=== PATIENT | male | born 1960 | race African-American/Black ===

== ENCOUNTER 2018-03-03 12:24 | Inpatient (IN) | payer OTHER ==
[2018-03-03 13:29] VITALS: BMI 28.8
--- NOTE | 2018-03-03 15:02 | HP ---
CIWA Score - CIWA Score Nausea/Vomitin Muscle Tremors: 2 Anxiety: 2 Agitation: 0-Normal Activity Paroxysmal Sweats: 2 Orientation: 2-Disoriented Date<2 days Tacttile Disturbances: 0-None Auditory Disturbances: 0-None Visual Disturbances: 0-None Headache: 2-Mild CIWA-Ar Total Score: 12 Admission [facility] Chief Complaint: ETOH WITHDRAWAL SYNDROME. Allergies/Adverse Reactions: Allergies Allergy/AdvReac Type Severity Reaction Status Date / Time No Known Allergies Allergy Verified 03/03/18 14:30 History of Present Illness: PATIENT PRESENTS WITH ETOH WITHDRAWAL SYMPTOMS. PATIENT STARTED DRINKING AT AGE. DRINKS 12 BEERS AND ONE PINT OF LIQUOR DAILY. LAST DRINK WAS THIS MORNING. DENIES HX OF SEIZURES. +BLACKOUTS. PATIENT ALSO SMOKE CRACK/COCAINE SINCE AGE 30 AND USES UP TO 80 DOLLARS DAILY. LAST TIME HE SMOKED WAS YESTERDAY. PMH INCLUDES HTN, TOBACCO USE, INSOMNIA AND ANXIETY. DENIES SI/HI AND SUICIDE ATTEMPTS. THIS IS PATIENT'S FIRST TIME DETOX ADMISSION HERE AT [facility]. PAT[facility] DA[facility] A[facility] FOR WITHDRAWAL SYMPTOMS AND TREATED WITH BZO. Exam Limitations: No Limitations - Ebola screening Have you traveled outside of the country in the last 21 days: No Have you had contact with anyone from an Ebola affected area: No Have you been sick,other than usual withdrawal symptoms: No Do you have a fever: No - Review of Systems Constitutional: Chills, Night Sweats, Changes in sleep, Weight Stable EENT: reports: No Symptoms Reported Respiratory: reports: No Symptoms reported Cardiac: reports: No Symptoms Reported GI: reports: Diarrhea, Nausea, Poor Fluid Intake, Abdominal cramping : reports: No Symptoms Reported Musculoskeletal: reports: Back Pain Integumentary: reports: Sweating Neuro: reports: Headache, Tremors Endocrine: reports: No Symptoms Reported Hematology: reports: No Symptoms Reported Psychiatric: reports: Anxious, Depressed Patient History - Patient Medical History Hx Anemia: No Hx Asthma: No Hx Chronic Obstructive Pulmonary Disease (COPD): No Hx Cancer: No Hx Cardiac Disorders: No Hx Congestive Heart Failure: No Hx Hypertension: Yes Hx Hypercholesterolemia: No Hx Pacemaker: No HX Cerebrovascular Accident: No Hx Seizures: No Hx Dementia: No Hx Diabetes: No Hx Gastrointestinal Disorders: No Hx Liver Disease: No Hx Genitourinary Disorders: No Hx Sexually Transmitted Disorders: No Hx Renal Disease (ESRD): No Hx Thyroid Disease: No Hx Human Immunodeficiency Virus (HIV): No Hx Hepatitis C: No Hx Depression: Yes Hx Suicide Attempt: No Hx Bipolar Disorder: No Hx Schizophrenia: No - Patient Surgical History Past Surgical History: No Hx Neurologic Surgery: No Hx Cataract Extraction: No Hx Cardiac Surgery: No Hx Lung Surgery: No Hx Breast Surgery: No Hx Breast Biopsy: No Hx Abdominal Surgery: No Hx Appendectomy: No Hx Cholecystectomy: No Hx Genitourinary Surgery: No Hx Orthopedic Surgery: No Anesthesia Reaction: No - PPD History Previous Implant?: Yes Documented Results: Negative w/o proof Implanted On Prior R Admission?: No PPD to be Administered?: Yes - Smoking Cessation Smoking history: Current every day smoker Have you smoked in the past 12 months: Yes Aproximately how many cigarettes per day: 10 Hx Chewing Tobacco Use: No Initiated information on smoking cessation: Yes 'Breaking Loose' booklet given: 03/03/18 - Substance & Tx. History Hx Alcohol Use: Yes Substance Use Type: None, Alcohol, Cocaine - Substances Abused Crack Route: Smoking Frequency: Daily Amount used: $60-70 Age of first use: 30 Date of Last Use: 03/02/18 Alcohol-suni/beer Route: Oral Frequency: Daily Amount used: 1 pt./3-4 6 pks. Age of first use: 16 Date of Last Use: 03/03/18 Family Disease History - Family Disease History Family Disease History: Diabetes: Father (), Heart Disease: Father Admission Physical Exam BHS - Vital Signs Vital Signs: Vital Signs - 24 hr 03/03/18 13:27 Temperature 98.3 F Pulse Rate 91 H Respiratory 18 Rate Blood Pressure 144/84 - Physical General Appearance: Yes: Appropriately Dressed, Disheveled, Tremorous, Sweating , Anxious HEENTM: Yes: EOMI, Hearing grossly Normal, Normocephalic, Normal Voice, RADHA, Pharynx Normal Respiratory: Yes: Chest Non-Tender, Lungs Clear, Normal Breath Sounds, No Respiratory Distress, No Accessory Muscle Use Neck: Yes: No masses,lesions,Nodules, Supple Breast: Yes: Breast Exam Deferred Cardiology: Yes: Regular Rhythm, Regular Rate, S1, S2 Abdominal: Yes: Normal Bowel Sounds, Non Tender, Soft Genitourinary: Yes: Within Normal Limits Back: Yes: Normal Inspection, Muscle Spasm Musculoskeletal: Yes: full range of Motion, Gait Steady, Back pain, Muscle Pain Extremities: Yes: Normal Inspection, Normal Range of Motion, Non-Tender, Tremors Neurological: Yes: Fully Oriented, Alert, Motor Strength 5/5, Depressed Affect Integumentary: Yes: Normal Color, Warm, Moist Lymphatic: Yes: Within Normal Limits - Diagnostic (1) Alcohol dependence with uncomplicated withdrawal Current Visit: Yes Status: Acute (2) Cocaine dependence Current Visit: Yes Status: Chronic Qualifiers: Substance use status: uncomplicated Qualified Code(s): F14.20 - Cocaine dependence, uncomplicated (3) HTN (hypertension) Current Visit: Yes Status: Chronic Qualifiers: Hypertension type: essential hypertension Qualified Code(s): I10 - Essential (primary) hypertension (4) Depression (emotion) Current Visit: Yes Status: Acute Qualifiers: Depression Type: unspecified Qualified Code(s): F32.9 - Major depressive disorder, single episode, unspecified (5) Insomnia Current Visit: Yes Status: Acute Qualifiers: Insomnia type: primary Qualified Code(s): F51.01 - Primary insomnia Cleared for Admission [facility] - Detox or Rehab [facility] Level of Care: Medically Managed Detox Regimen/Protocol: Librium [facility] Breath Alcohol Content Breath Alcohol Content: 0 Urine Drug Screen - Results Drug Screen Negative: No Urine Drug Screen Results: SÁNCHEZ-Cocaine, BZO-Benzodiazepines
[2018-03-03] MEDS ORDERED: P-EPHED 60MG/TRIPROLIDI 2.5MG TABLET PO PRN (15:10)
[2018-03-03] MEDS ORDERED: LOPERAMIDE HCL 2 MG CAPSULE PO PRN (15:10)
[2018-03-03] MEDS ORDERED: MENTHOL/PHENOL 1 EACH UD MM PRN (15:10)
[2018-03-03] MEDS ORDERED: MAGNESIUM HYDROX 2400MG/30ML ORAL SUSPENSION 30 ML CUP PO PRN (15:10)
[2018-03-03] MEDS ORDERED: ACETAMINOPHEN 325 MG TABLET (FP) PO PRN (15:10)
[2018-03-03] MEDS ORDERED: NICOTINE POLACRILEX 2 MG GUM BUC PRN (15:10)
[2018-03-03] MEDS ORDERED: MAG HYDROX/AL HYDROX/SIMETH 30 ML UNIT-DOSE CUP PO PRN (15:10)
[2018-03-03] MEDS ORDERED: MAGNESIUM CITRATE 300 ML BOTTLE PO PRN (15:10)
[2018-03-03] MEDS ORDERED: guaiFENesin/D-METHORPHAN HB 10 ML UNIT-DOSE CUPS PO PRN (15:10)
[2018-03-03] MEDS ORDERED: IBUPROFEN 400 MG TABLET (FP) PO PRN (15:10)
[2018-03-03] MEDS ORDERED: hydrOXYzine PAMOATE 50 MG CAPSULE (FP) PO PRN (15:10)
[2018-03-03 17:18] LABS: URINE APPEARANCE CLEAR; URINE BILIRUBIN NEGATIVE (<2.0 mg/dL); URINE COLOR STRAW; URINE GLUCOSE (UA) NEGATIVE (NEGATIVE); URINE KETONE NEGATIVE (NEGATIVE); URINE LEUK ESTERASE NEGATIVE (NEGATIVE); URINE NITRITE NEGATIVE (NEGATIVE); URINE PROTEIN NEGATIVE (NEGATIVE); URINE UROBILINOGEN NEGATIVE mg/dL (0.2-1.0)
[2018-03-03] MEDS: chlordiazePOXIDE HCL 25 MG CAPSULE PO SCH ×2 (17:22→22:50)
[2018-03-03] MEDS: amLODIPine BESYLATE 10 MG TABLET (FP) PO SCH (17:22)
[2018-03-03] MEDS: chlordiazePOXIDE HCL 25 MG CAPSULE PO PRN (20:58)
[2018-03-03] MEDS: THIAMINE HCL 100 MG TABLET (FP) PO SCH (22:50)
[2018-03-04] MEDS: chlordiazePOXIDE HCL 25 MG CAPSULE PO SCH ×4 (05:26→22:40)
--- NOTE | 2018-03-04 08:53 | CONSULT ---
[facility] Psychiatric Consult - Data Date of interview: 03/04/18 Admission source: [facility] Identifying data: C[employer] Machine Catcher approached patient for psychiatric consultation. Patient politely refused. Stated, "i'm good. i was able to sleep well. I do not need to speak to you. Thank you."
--- NOTE | 2018-03-04 09:59 | EKG ---
Test Reason : Blood Pressure : / mmHG Vent. Rate : 060 BPM Atrial Rate : 060 BPM P-R Int : 184 ms QRS Dur : 082 ms QT Int : 438 ms P-R-T Axes : 048 046 035 degrees QTc Int : 438 ms NORMAL SINUS RHYTHM NORMAL ECG NO PREVIOUS ECGS AVAILABLE Confirmed by SAMUEL GOSS MD ([id number]) on 03/04/2018 9:59:26 AM Referred By: Confirmed By:SAMUEL GOSS MD
[2018-03-04] MEDS: amLODIPine BESYLATE 10 MG TABLET (FP) PO SCH (10:30)
[2018-03-04] MEDS: LISINOPRIL 10 MG TABLET (FP) PO SCH (10:30)
[2018-03-04] MEDS: HYDROCHLOROTHIAZIDE 25 MG TABLET (FP) PO SCH (10:30)
[2018-03-04] MEDS: PRENATAL VITAMINS W/ FOLIC ACID TABLET (FP) PO SCH (10:31)
[2018-03-04 10:33] LABS: HEMATOCRIT 38.3 % (35.4-49); HEMOGLOBIN 12.9 GM/dL (11.7-16.9); MCH 30.4 pg (25.7-33.7); MCHC 33.8 g/dl (32.0-35.9); MEAN PLT VOLUME 8.6 fl (7.5-11.1); PLATELET COUNT 249 K/MM3 (134-434); RBC 4.25 M/mm3 (4.00-5.60)
[2018-03-04 12:36] LABS: ALBUMIN 3.6 g/dl (3.4-5.0); ALK PHOS 96 U/L (45-117); ANION GAP 5 MMOL/L (8-16); BLOOD UREA NITROGEN 14 mg/dL (7-18); CALCIUM 8.8 mg/dL (8.5-10.1); CHLORIDE 103 mmol/L (98-107); CO2 29 mmol/L (21-32); CREATININE 1.2 mg/dL (0.55-1.3); GLUCOSE,RANDOM 108 mg/dL (74-106); POTASSIUM 4.2 mmol/L (3.5-5.1); SGOT/AST 24 U/L (15-37); SGPT/ALT 32 U/L (13-61); SODIUM 137 mmol/L (136-145); TOT PROT 6.6 g/dl (6.4-8.2)
--- NOTE | 2018-03-04 16:11 | PN ---
S CIWA - CIWA Score Nausea/Vomitin-Mild Nausea/No Vomiting Muscle Tremors: 3 Anxiety: 3 Agitation: 2 Paroxysmal Sweats: 1-Minimal Palms Moist Orientation: 0-Oriented Tacttile Disturbances: 1-Very Mild Itch/Numbness Auditory Disturbances: 1-Very Mild Visual Disturbances: 0-None Headache: 0-None Present CIWA-Ar Total Score: 12 BHS Progress Note (SOAP) Subjective: sweat tremor gi distress anxiety restlessness trouble sleep at night Objective: 03/04/18 16:11 Vital Signs Temperature 96.6 F L 03/04/18 13:40 Pulse Rate 88 03/04/18 13:40 Respiratory Rate 18 03/04/18 13:40 Blood Pressure 130/79 03/04/18 13:40 O2 Sat by Pulse Oximetry (%) Laboratory Last Values WBC 5.0 K/mm3 (4.0-10.0) 03/04/18 07:00 RBC 4.25 M/mm3 (4.00-5.60) 03/04/18 07:00 Hgb 12.9 GM/dL (11.7-16.9) 03/04/18 07:00 Hct 38.3 % (35.4-49) 03/04/18 07:00 MCV 90.0 fl (80-96) 03/04/18 07:00 MCH 30.4 pg (25.7-33.7) 03/04/18 07:00 MCHC 33.8 g/dl (32.0-35.9) 03/04/18 07:00 RDW 13.0 % (11.9-15.9) 03/04/18 07:00 Plt Count 249 K/MM3 (134-434) 03/04/18 07:00 MPV 8.6 fl (7.5-11.1) 03/04/18 07:00 Sodium 137 mmol/L (136-145) 03/04/18 07:00 Potassium 4.2 mmol/L (3.5-5.1) 03/04/18 07:00 Chloride 103 mmol/L (98-107) 03/04/18 07:00 Carbon Dioxide 29 mmol/L (21-32) 03/04/18 07:00 Anion Gap 5 MMOL/L (8-16) L 03/04/18 07:00 BUN 14 mg/dL (7-18) 03/04/18 07:00 Creatinine 1.2 mg/dL (0.55-1.3) 03/04/18 07:00 Creat Clearance w eGFR > 60 (>60) 03/04/18 07:00 Random Glucose 108 mg/dL (74-106) H 03/04/18 07:00 Calcium 8.8 mg/dL (8.5-10.1) 03/04/18 07:00 Total Bilirubin 1.0 mg/dL (0.2-1) 03/04/18 07:00 AST 24 U/L (15-37) 03/04/18 07:00 ALT 32 U/L (13-61) 03/04/18 07:00 Alkaline Phosphatase 96 U/L (45-117) 03/04/18 07:00 Total Protein 6.6 g/dl (6.4-8.2) 03/04/18 07:00 Albumin 3.6 g/dl (3.4-5.0) 03/04/18 07:00 Urine Color Straw 03/03/18 16:13 Urine Appearance Clear 03/03/18 16:13 Urine pH 6.0 (5.0-8.0) 03/03/18 16:13 Ur Specific [place] 1.003 (1.001-1.035) 03/03/18 16:13 Urine Protein Negative (NEGATIVE) 03/03/18 16:13 Urine Glucose (UA) Negative (NEGATIVE) 03/03/18 16:13 Urine Ketones Negative (NEGATIVE) 03/03/18 16:13 Urine Blood 1+ (NEGATIVE) H 03/03/18 16:13 Urine Nitrite Negative (NEGATIVE) 03/03/18 16:13 Urine Bilirubin Negative (<2.0 mg/dL) 03/03/18 16:13 Urine Urobilinogen Negative mg/dL (0.2-1.0) 03/03/18 16:13 Ur Leukocyte Esterase Negative (NEGATIVE) 03/03/18 16:13 Urine WBC (Auto) None /hpf (3-5) 03/03/18 16:13 Urine RBC (Auto) <1 /hpf (0-3) 03/03/18 16:13 RPR Titer Nonreactive (NONREACTIVE) 03/04/18 07:00 lab noted Assessment: 03/04/18 16:12 withdrawal sx Plan: continue detox
[2018-03-04] MEDS: THIAMINE HCL 100 MG TABLET (FP) PO SCH (22:39)
[2018-03-05] MEDS: chlordiazePOXIDE HCL 25 MG CAPSULE PO PRN ×2 (00:39→14:04)
[2018-03-05] MEDS: chlordiazePOXIDE HCL 25 MG CAPSULE PO SCH ×2 (06:34→10:55)
[2018-03-05] MEDS: PRENATAL VITAMINS W/ FOLIC ACID TABLET (FP) PO SCH (10:55)
[2018-03-05] MEDS: HYDROCHLOROTHIAZIDE 25 MG TABLET (FP) PO SCH (10:55)
[2018-03-05] MEDS: LISINOPRIL 10 MG TABLET (FP) PO SCH (10:55)
[2018-03-05] MEDS: amLODIPine BESYLATE 10 MG TABLET (FP) PO SCH (10:55)
--- NOTE | 2018-03-05 11:55 | PN ---
S CIWA - CIWA Score Nausea/Vomitin-No Nausea/No Vomiting Muscle Tremors: None Anxiety: 2 Agitation: 0-Normal Activity Paroxysmal Sweats: No Perspiration Orientation: 0-Oriented Tacttile Disturbances: 0-None Auditory Disturbances: 0-None Visual Disturbances: 0-None Headache: 0-None Present CIWA-Ar Total Score: 2 BHS Progress Note (SOAP) Subjective: PATIENT PRESENTS WITH ANXIETY BUT REPORTS FEELING BETTER. CURRENTLY IN DETOX FOR ETOH WITHDRAWAL SYMPTOMS. Objective: 03/05/18 11:54 Laboratory Tests 03/03/18 03/04/18 03/04/18 16:13 07:00 07:00 WBC 5.0 RBC 4.25 Hgb 12.9 Hct 38.3 MCV 90.0 MCH 30.4 MCHC 33.8 RDW 13.0 Plt Count 249 MPV 8.6 Sodium 137 Potassium 4.2 Chloride 103 Carbon Dioxide 29 Anion Gap 5 L BUN 14 Creatinine 1.2 Creat Clearance w eGFR > 60 Random Glucose 108 H Calcium 8.8 Total Bilirubin 1.0 AST 24 ALT 32 Alkaline Phosphatase 96 Total Protein 6.6 Albumin 3.6 Urine Color Straw Urine Appearance Clear Urine pH 6.0 Ur Specific [place] 1.003 Urine Protein Negative Urine Glucose (UA) Negative Urine Ketones Negative Urine Blood 1+ H Urine Nitrite Negative Urine Bilirubin Negative Urine Urobilinogen Negative Ur Leukocyte Esterase Negative Urine WBC (Auto) None Urine RBC (Auto) <1 RPR Titer 03/04/18 07:00 WBC RBC Hgb Hct MCV MCH MCHC RDW Plt Count MPV Sodium Potassium Chloride Carbon Dioxide Anion Gap BUN Creatinine Creat Clearance w eGFR Random Glucose Calcium Total Bilirubin AST ALT Alkaline Phosphatase Total Protein Albumin Urine Color Urine Appearance Urine pH Ur Specific [place] Urine Protein Urine Glucose (UA) Urine Ketones Urine Blood Urine Nitrite Urine Bilirubin Urine Urobilinogen Ur Leukocyte Esterase Urine WBC (Auto) Urine RBC (Auto) RPR Titer Nonreactive ALERT AND ORIENTED SKIN WARM AND DRY CAR S1S2 RESP CTA BL PSYCH +MILD ANXIETY A/P: ETOH WITHDRAWAL SYNDROME CONTINUE DETOX ORDERED CONTINUE TO MONITOR CLINICALLY Assessment: 03/05/18 11:55 A/P: ETOH WITHDRAWAL SYNDROME Plan: CONTINUE DETOX ORDERED CONTINUE TO MONITOR CLINICALLY 03/05/18 11:55
[2018-03-05] MEDS: chlordiazePOXIDE 5 MG CAPSULE PO SCH ×2 (17:51→22:14)
[2018-03-05] MEDS: THIAMINE HCL 100 MG TABLET (FP) PO SCH (22:14)
[2018-03-05] MEDS: MELATONIN 5 MG TABLETS PO PRN (22:17)
[2018-03-06] MEDS: chlordiazePOXIDE 5 MG CAPSULE PO SCH ×2 (05:40→11:07)
[2018-03-06] MEDS: HYDROCHLOROTHIAZIDE 25 MG TABLET (FP) PO SCH (11:06)
[2018-03-06] MEDS: amLODIPine BESYLATE 10 MG TABLET (FP) PO SCH (11:06)
[2018-03-06] MEDS: LISINOPRIL 10 MG TABLET (FP) PO SCH (11:06)
[2018-03-06] MEDS: PRENATAL VITAMINS W/ FOLIC ACID TABLET (FP) PO SCH (11:10)
--- NOTE | 2018-03-06 14:10 | PN ---
BHS Progress Note (SOAP) Subjective: Less anxiety, interrupted sleep Objective: 03/06/18 14:09 Vital Signs 03/06/18 03/06/18 10:09 13:53 Temperature 96.8 F L 98.1 F Pulse Rate 67 73 Respiratory 16 18 Rate Blood Pressure 134/75 103/51 L Laboratory Last Values WBC 5.0 K/mm3 (4.0-10.0) 03/04/18 07:00 RBC 4.25 M/mm3 (4.00-5.60) 03/04/18 07:00 Hgb 12.9 GM/dL (11.7-16.9) 03/04/18 07:00 Hct 38.3 % (35.4-49) 03/04/18 07:00 MCV 90.0 fl (80-96) 03/04/18 07:00 MCH 30.4 pg (25.7-33.7) 03/04/18 07:00 MCHC 33.8 g/dl (32.0-35.9) 03/04/18 07:00 RDW 13.0 % (11.9-15.9) 03/04/18 07:00 Plt Count 249 K/MM3 (134-434) 03/04/18 07:00 MPV 8.6 fl (7.5-11.1) 03/04/18 07:00 Sodium 137 mmol/L (136-145) 03/04/18 07:00 Potassium 4.2 mmol/L (3.5-5.1) 03/04/18 07:00 Chloride 103 mmol/L (98-107) 03/04/18 07:00 Carbon Dioxide 29 mmol/L (21-32) 03/04/18 07:00 Anion Gap 5 MMOL/L (8-16) L 03/04/18 07:00 BUN 14 mg/dL (7-18) 03/04/18 07:00 Creatinine 1.2 mg/dL (0.55-1.3) 03/04/18 07:00 Creat Clearance w eGFR > 60 (>60) 03/04/18 07:00 Random Glucose 108 mg/dL (74-106) H 03/04/18 07:00 Calcium 8.8 mg/dL (8.5-10.1) 03/04/18 07:00 Total Bilirubin 1.0 mg/dL (0.2-1) 03/04/18 07:00 AST 24 U/L (15-37) 03/04/18 07:00 ALT 32 U/L (13-61) 03/04/18 07:00 Alkaline Phosphatase 96 U/L (45-117) 03/04/18 07:00 Total Protein 6.6 g/dl (6.4-8.2) 03/04/18 07:00 Albumin 3.6 g/dl (3.4-5.0) 03/04/18 07:00 Urine Color Straw 03/03/18 16:13 Urine Appearance Clear 03/03/18 16:13 Urine pH 6.0 (5.0-8.0) 03/03/18 16:13 Ur Specific [place] 1.003 (1.001-1.035) 03/03/18 16:13 Urine Protein Negative (NEGATIVE) 03/03/18 16:13 Urine Glucose (UA) Negative (NEGATIVE) 03/03/18 16:13 Urine Ketones Negative (NEGATIVE) 03/03/18 16:13 Urine Blood 1+ (NEGATIVE) H 03/03/18 16:13 Urine Nitrite Negative (NEGATIVE) 03/03/18 16:13 Urine Bilirubin Negative (<2.0 mg/dL) 03/03/18 16:13 Urine Urobilinogen Negative mg/dL (0.2-1.0) 03/03/18 16:13 Ur Leukocyte Esterase Negative (NEGATIVE) 03/03/18 16:13 Urine WBC (Auto) None /hpf (3-5) 03/03/18 16:13 Urine RBC (Auto) <1 /hpf (0-3) 03/03/18 16:13 RPR Titer Nonreactive (NONREACTIVE) 03/04/18 07:00 Labs noted Assessment: 03/06/18 14:10 Withdrawal sx Plan: Continue detox
[2018-03-06] MEDS: chlordiazePOXIDE HCL 10 MG CAPSULE PO SCH ×2 (17:33→22:16)
[2018-03-06] MEDS: THIAMINE HCL 100 MG TABLET (FP) PO SCH (22:16)
[2018-03-06] MEDS: MELATONIN 5 MG TABLETS PO PRN (22:17)
[2018-03-07] MEDS: chlordiazePOXIDE HCL 10 MG CAPSULE PO SCH ×2 (05:34→10:31)
--- NOTE | 2018-03-07 09:07 | PN ---
BHS Progress Note (SOAP) Subjective: mild tremor sweat trouble sleep at night Objective: 03/07/18 16:29 Vital Signs Temperature 97.7 F 03/07/18 15:07 Pulse Rate 77 03/07/18 15:07 Respiratory Rate 18 03/07/18 15:07 Blood Pressure 136/77 03/07/18 15:07 O2 Sat by Pulse Oximetry (%) Laboratory Last Values WBC 5.0 K/mm3 (4.0-10.0) 03/04/18 07:00 RBC 4.25 M/mm3 (4.00-5.60) 03/04/18 07:00 Hgb 12.9 GM/dL (11.7-16.9) 03/04/18 07:00 Hct 38.3 % (35.4-49) 03/04/18 07:00 MCV 90.0 fl (80-96) 03/04/18 07:00 MCH 30.4 pg (25.7-33.7) 03/04/18 07:00 MCHC 33.8 g/dl (32.0-35.9) 03/04/18 07:00 RDW 13.0 % (11.9-15.9) 03/04/18 07:00 Plt Count 249 K/MM3 (134-434) 03/04/18 07:00 MPV 8.6 fl (7.5-11.1) 03/04/18 07:00 Sodium 137 mmol/L (136-145) 03/04/18 07:00 Potassium 4.2 mmol/L (3.5-5.1) 03/04/18 07:00 Chloride 103 mmol/L (98-107) 03/04/18 07:00 Carbon Dioxide 29 mmol/L (21-32) 03/04/18 07:00 Anion Gap 5 MMOL/L (8-16) L 03/04/18 07:00 BUN 14 mg/dL (7-18) 03/04/18 07:00 Creatinine 1.2 mg/dL (0.55-1.3) 03/04/18 07:00 Creat Clearance w eGFR > 60 (>60) 03/04/18 07:00 Random Glucose 108 mg/dL (74-106) H 03/04/18 07:00 Calcium 8.8 mg/dL (8.5-10.1) 03/04/18 07:00 Total Bilirubin 1.0 mg/dL (0.2-1) 03/04/18 07:00 AST 24 U/L (15-37) 03/04/18 07:00 ALT 32 U/L (13-61) 03/04/18 07:00 Alkaline Phosphatase 96 U/L (45-117) 03/04/18 07:00 Total Protein 6.6 g/dl (6.4-8.2) 03/04/18 07:00 Albumin 3.6 g/dl (3.4-5.0) 03/04/18 07:00 Urine Color Straw 03/03/18 16:13 Urine Appearance Clear 03/03/18 16:13 Urine pH 6.0 (5.0-8.0) 03/03/18 16:13 Ur Specific [place] 1.003 (1.001-1.035) 03/03/18 16:13 Urine Protein Negative (NEGATIVE) 03/03/18 16:13 Urine Glucose (UA) Negative (NEGATIVE) 03/03/18 16:13 Urine Ketones Negative (NEGATIVE) 03/03/18 16:13 Urine Blood 1+ (NEGATIVE) H 03/03/18 16:13 Urine Nitrite Negative (NEGATIVE) 03/03/18 16:13 Urine Bilirubin Negative (<2.0 mg/dL) 03/03/18 16:13 Urine Urobilinogen Negative mg/dL (0.2-1.0) 03/03/18 16:13 Ur Leukocyte Esterase Negative (NEGATIVE) 03/03/18 16:13 Urine WBC (Auto) None /hpf (3-5) 03/03/18 16:13 Urine RBC (Auto) <1 /hpf (0-3) 03/03/18 16:13 RPR Titer Nonreactive (NONREACTIVE) 03/04/18 07:00 lab noted Assessment: 03/07/18 08:59 mild withdrawal sx Plan: medically supervised detox
[2018-03-07] MEDS: amLODIPine BESYLATE 10 MG TABLET (FP) PO SCH (10:31)
[2018-03-07] MEDS: LISINOPRIL 10 MG TABLET (FP) PO SCH (10:31)
[2018-03-07] MEDS: HYDROCHLOROTHIAZIDE 25 MG TABLET (FP) PO SCH (10:31)
[2018-03-07] MEDS: PRENATAL VITAMINS W/ FOLIC ACID TABLET (FP) PO SCH (10:31)
[2018-03-07] MEDS: MELATONIN 5 MG TABLETS PO PRN (21:06)
[2018-03-08] MEDS: THIAMINE HCL 100 MG TABLET (FP) PO SCH (00:14)
[2018-03-08 09:16] VITALS: BP 134/76; PULSE 71; TEMP 96.6
--- NOTE | 2018-03-08 09:40 | DS ---
[facility] Detox Discharge Summary Admission Date: 03/03/18 Discharge Date: 03/08/18 - History Present History: Alcohol Dependence Additional Comments: Admitted with c/o alcohol withdrawal. Alcohol use disorder began at age 16. Cocaine use disorder began 30. - Physical Exam Results Vital Signs: Vital Signs Temperature 96.6 F L 03/08/18 09:16 Pulse Rate 71 03/08/18 09:16 Respiratory Rate 18 03/08/18 09:16 Blood Pressure 134/76 03/08/18 09:16 O2 Sat by Pulse Oximetry (%) Pertinent Admission Physical Exam Findings: Patient admitted for alcohol withdrawal. Lab Results WBC 5.0 K/mm3 (4.0-10.0) 03/04/18 07:00 RBC 4.25 M/mm3 (4.00-5.60) 03/04/18 07:00 Hgb 12.9 GM/dL (11.7-16.9) 03/04/18 07:00 Hct 38.3 % (35.4-49) 03/04/18 07:00 MCV 90.0 fl (80-96) 03/04/18 07:00 MCHC 33.8 g/dl (32.0-35.9) 03/04/18 07:00 RDW 13.0 % (11.9-15.9) 03/04/18 07:00 Plt Count 249 K/MM3 (134-434) 03/04/18 07:00 Sodium 137 mmol/L (136-145) 03/04/18 07:00 Potassium 4.2 mmol/L (3.5-5.1) 03/04/18 07:00 Chloride 103 mmol/L (98-107) 03/04/18 07:00 Carbon Dioxide 29 mmol/L (21-32) 03/04/18 07:00 Anion Gap 5 MMOL/L (8-16) L 03/04/18 07:00 BUN 14 mg/dL (7-18) 03/04/18 07:00 Creatinine 1.2 mg/dL (0.55-1.3) 03/04/18 07:00 Random Glucose 108 mg/dL (74-106) H 03/04/18 07:00 Calcium 8.8 mg/dL (8.5-10.1) 03/04/18 07:00 Labs reviewed. - Treatment Hospital Course: Detox Protocol Followed, Detoxed Safely, Responded well, Discharged Condition Good, Rehab Referral Accepted - Medication Discharge Medications: Ambulatory Orders Amlodipine Besylate [Norvasc -] 10 mg PO DAILY #30 tablet 03/07/18 Hydrochlorothiazide [Hctz -] 25 mg PO DAILY #30 tablet 03/07/18 Lisinopril [Prinivil] 10 mg PO DAILY #30 tablet 03/07/18 - Diagnosis (1) Alcohol dependence with uncomplicated withdrawal Status: Acute (2) Cocaine dependence Status: Chronic Qualifiers: Substance use status: uncomplicated Qualified Code(s): F14.20 - Cocaine dependence, uncomplicated (3) HTN (hypertension) Status: Chronic Qualifiers: Hypertension type: essential hypertension Qualified Code(s): I10 - Essential (primary) hypertension - AMA Did Patient Leave Against Medical Advice: No
[2018-03-08] MEDS: PRENATAL VITAMINS W/ FOLIC ACID TABLET (FP) PO SCH (11:24)
[2018-03-08] MEDS: LISINOPRIL 10 MG TABLET (FP) PO SCH (11:24)
[2018-03-08] MEDS: HYDROCHLOROTHIAZIDE 25 MG TABLET (FP) PO SCH (11:24)
[2018-03-08] MEDS: amLODIPine BESYLATE 10 MG TABLET (FP) PO SCH (11:24)
== END 2018-03-08 11:31 | disposition home or self-care (01) | DRG 774 ==
LOC: YASAS 12:24 → Y6N 15:34
PROC: HZ2ZZZZ Detoxification Services for Substance Abuse Treatment (ICD-10-PCS; principal; 2018-03-03)
DX: F10.230 Alcohol dependence with withdrawal, uncomplicated (principal); F14.20 Cocaine dependence, uncomplicated; F51.01 Primary insomnia; F32.9 Major depressive disorder, single episode, unspecified; I10 Essential (primary) hypertension; Z59.0 Homelessness
CPT/HCPCS: 36415; 80053; 81003; 81015; 85027; 86593; 93005; 93010

== ENCOUNTER 2023-02-20 13:31 | Inpatient (IN) | payer OTHER ==
[2023-02-20 15:18] VITALS: BMI 29.0
[2023-02-20] MEDS ORDERED: MAGNESIUM HYDROX 2400MG/30ML ORAL SUSPENSION 30 ML CUP PO PRN (17:29)
[2023-02-20] MEDS ORDERED: POLYETHYLENE GLYCOL (HEALTHYLAX) 3350 17 GM PACKET PO PRN (17:29)
[2023-02-20] MEDS ORDERED: ONDANSETRON *ODT* 4 MG TABLET SL PRN (17:29)
[2023-02-20] MEDS ORDERED: IBUPROFEN 400 MG TABLET (FP) PO PRN (17:29)
[2023-02-20] MEDS ORDERED: NALOXONE HCL (KLOXXADO) 8 MG SPRAY NS PRN (17:29)
[2023-02-20] MEDS ORDERED: guaiFENesin 600 MG TABLET.ER (FP) PO PRN (17:29)
[2023-02-20] MEDS ORDERED: IBUPROFEN 600 MG TABLET (FP) PO PRN (17:29)
[2023-02-20] MEDS ORDERED: METHOCARBAMOL 500 MG TABLET PO PRN (17:29)
[2023-02-20] MEDS ORDERED: BISMUTH SUBSALICYLATE 524 MG/30 ML PO PRN (17:29)
[2023-02-20] MEDS ORDERED: chlordiazePOXIDE HCL 25 MG CAPSULE PO PRN (17:29)
[2023-02-20] MEDS ORDERED: NALOXONE HCL 0.4 MG/ML VIAL IM PRN (17:29)
[2023-02-20] MEDS ORDERED: LOPERAMIDE HCL 2 MG CAPSULE PO PRN (17:29)
[2023-02-20] MEDS ORDERED: MAG HYDROX/AL HYDROX/SIMETH 30 ML UNIT-DOSE CUP PO PRN (17:29)
[2023-02-20] MEDS ORDERED: BENZOCAINE/MENTHOL (CHLORASEPTIC ) LOZENGE MM PRN (17:29)
[2023-02-20] MEDS ORDERED: DICYCLOMINE HCL 10 MG CAPSULE PO PRN (17:29)
[2023-02-20] MEDS ORDERED: BENZONATATE 200 MG CAPSULE PO PRN (17:29)
[2023-02-20] MEDS ORDERED: ACETAMINOPHEN 325 MG TABLET (FP) PO PRN (17:29)
[2023-02-20] MEDS: hydrOXYzine PAMOATE 25 MG CAPSULE (FP) PO PRN (19:36)
[2023-02-20] MEDS: THIAMINE HCL 100 MG TABLET (FP) PO SCH (22:48)
[2023-02-20] MEDS: chlordiazePOXIDE HCL 25 MG CAPSULE PO SCH (22:48)
[2023-02-20] MEDS: MELATONIN 5 MG TABLETS PO SCH (22:50)
[2023-02-21] MEDS: chlordiazePOXIDE HCL 25 MG CAPSULE PO SCH ×4 (05:30→22:29)
[2023-02-21 09:41] LABS: POTASSIUM 4.3 mmol/L (3.5-5.1)
[2023-02-21 09:44] LABS: HEMATOCRIT 39.5 % (35.4-49); HEMOGLOBIN 13.6 GM/dL (11.7-16.9); MCH 32.5 pg (25.7-33.7); MCHC 34.4 g/dl (32.0-35.9); MEAN CELL VOLUME 94.4 fl (80-96); MEAN PLT VOLUME 9.1 fl (7.5-11.1); PLATELET COUNT 238 10^3/uL (134-434); RBC 4.19 M/mm3 (4.00-5.60)
[2023-02-21 09:54] LABS: ALBUMIN 3.4 g/dl (3.4-5.0); BLOOD UREA NITROGEN 13.9 mg/dL (7-18); CREATININE 0.9 mg/dL (0.55-1.3)
[2023-02-21 09:55] LABS: TOT PROT 6.4 g/dl (6.4-8.2)
[2023-02-21 09:56] LABS: BILIRUBIN,TOTAL 0.6 mg/dL (0.2-1); CALCIUM 8.6 mg/dL (8.5-10.1)
[2023-02-21] MEDS: PRENATAL VITAMINS W/ FOLIC ACID TABLET (FP) PO SCH (10:26)
[2023-02-21] MEDS: amLODIPine BESYLATE 10 MG TABLET (FP) PO SCH (12:20)
[2023-02-21] MEDS: MELATONIN 5 MG TABLETS PO SCH (22:28)
[2023-02-21] MEDS: THIAMINE HCL 100 MG TABLET (FP) PO SCH (22:29)
[2023-02-22] MEDS: chlordiazePOXIDE HCL 25 MG CAPSULE PO SCH ×4 (05:21→22:52)
[2023-02-22] MEDS: PRENATAL VITAMINS W/ FOLIC ACID TABLET (FP) PO SCH (10:28)
[2023-02-22] MEDS: amLODIPine BESYLATE 10 MG TABLET (FP) PO SCH (10:28)
[2023-02-22] MEDS: hydrOXYzine PAMOATE 25 MG CAPSULE (FP) PO PRN (20:33)
[2023-02-22] MEDS: THIAMINE HCL 100 MG TABLET (FP) PO SCH (22:51)
[2023-02-22] MEDS: MELATONIN 5 MG TABLETS PO SCH (22:51)
[2023-02-23] MEDS ORDERED: chlordiazePOXIDE HCL 10 MG CAPSULE PO PRN
[2023-02-23] MEDS: chlordiazePOXIDE HCL 10 MG CAPSULE PO SCH ×4 (05:06→22:48)
[2023-02-23] MEDS: PRENATAL VITAMINS W/ FOLIC ACID TABLET (FP) PO SCH (10:15)
[2023-02-23] MEDS: amLODIPine BESYLATE 10 MG TABLET (FP) PO SCH (10:15)
[2023-02-23] MEDS: MELATONIN 5 MG TABLETS PO SCH (22:48)
[2023-02-23] MEDS: THIAMINE HCL 100 MG TABLET (FP) PO SCH (22:48)
[2023-02-24] MEDS: chlordiazePOXIDE HCL 10 MG CAPSULE PO SCH ×2 (05:30→17:23)
[2023-02-24] MEDS: PRENATAL VITAMINS W/ FOLIC ACID TABLET (FP) PO SCH (10:06)
[2023-02-24] MEDS: amLODIPine BESYLATE 10 MG TABLET (FP) PO SCH (10:06)
[2023-02-24 21:18] VITALS: RESP 20
[2023-02-24] MEDS ORDERED: cloNIDine HCL 0.1 MG TABLET PO ONE (21:18)
[2023-02-24] MEDS: THIAMINE HCL 100 MG TABLET (FP) PO SCH (21:36)
[2023-02-24] MEDS: MELATONIN 5 MG TABLETS PO SCH (21:37)
[2023-02-25] MEDS ORDERED: chlordiazePOXIDE HCL 10 MG CAPSULE PO ONE (05:00)
[2023-02-25 06:26] VITALS: BP 136/74; PULSE 72; TEMP 98
[2023-02-25] MEDS: PRENATAL VITAMINS W/ FOLIC ACID TABLET (FP) PO SCH (09:00)
[2023-02-25] MEDS: amLODIPine BESYLATE 10 MG TABLET (FP) PO SCH (09:00)
== END 2023-02-25 09:06 | disposition other institution (70) | DRG 774 ==
LOC: YASAS 13:31 → Y3N 17:43
PROVIDERS: ADMIT Allergy & Immunology; ATTEND Surgery
PROC: HZ2ZZZZ Detoxification Services for Substance Abuse Treatment (ICD-10-PCS; principal; 2023-02-20)
DX: F10.230 Alcohol dependence with withdrawal, uncomplicated (principal); F14.20 Cocaine dependence, uncomplicated; F17.210 Nicotine dependence, cigarettes, uncomplicated; F32.9 Major depressive disorder, single episode, unspecified; F51.01 Primary insomnia; F41.9 Anxiety disorder, unspecified; I10 Essential (primary) hypertension
CPT/HCPCS: 36415; 80053; 85027; 86780; 87635